=== PATIENT | male | born 1975 | race Caucasian/White ===

== ENCOUNTER → 2021-08-23 12:09 | Outpatient (CLI) | payer SELFPAY ==
--- NOTE | 2021-08-23 12:19 | CT_ITS ---
PROCEDURE: CT HEART W CALCIUM SCORE CLINICAL HISTORY: eval for cad COMPARISON: No exams were available for comparison TECHNIQUE: Axial images obtained with sagittal and coronal reformats. All CT scans at the facility use one or more dose reduction, viz: automated exposure control, ma/kV adjustment per patient size (including targeted exams where dose is matched to indication, i.e. head), or iterative reconstruction technique. FINDINGS: Coronary artery calcium score is 0. No identifiable calcific atherosclerotic plaque with very low cardiovascular disease risk IMPRESSION: No identifiable calcific atherosclerotic plaque with very low cardiovascular disease risk Dictated by: Elfego Moeller MD 08/23/2021 17:43 Elfego Moeller MD in [facility] 08/23/2021 17:43
== END ==
PROVIDERS: PCP Nurse Practitioner Family; Visit Provider Internal Medicine
DX: Z13.6 Encounter for screening for cardiovascular disorders (principal); R00.2 Palpitations; R42 Dizziness and giddiness
CPT/HCPCS: 75571

== ENCOUNTER → 2021-08-23 12:16 | Outpatient (CLI) | payer SELFPAY ==
--- NOTE | 2021-08-23 12:16 | CA_ITS ---
APPROVED REPORT EXAM: Comprehensive 2D, Doppler, and color-flow Echocardiogram Director Maternal Child: Jagruti Anton, ELE, RVS Ht: 5 ft 11 in Wt: 211lbs BSA: 2.16 BP: 128/92 mmHg Indications: Palptiations 2D Dimensions Aortic Root 2.97 cm LA Volume 49.50 mL LVOT 2.06 cm (M/F) 1.5-2.5 LA Volume Index 22.90 mL/m2 (M/F) 16-34 M-Mode Dimensions RVDd 2.82 cm (0.9-2.6) LA Diam 3.28 cm (1.9-4.0) LVDd 5.03 cm (3.5-5.7) Ao Diam 2.86 cm (2.0-3.7) LVDs 3.24 cm (3.5-5.7) IVSd 1.11 cm (0.6-1.1) PWd 1.07 cm (0.6-1.1) EF (Teich) 64.80% EPSs 0.34 cm FS 35.60% EDV (Teich) 119.90 mL TAPSE 2.78 (<1.7) ESV (Teich) 42.20 mL LV Diastology E Decel Time 277.00 (160-240 msec) E/A Ratio 2.72 MED E' 10.30 (< 7 cm/sec) MED A' 9.70 cm/s E'/MED E' Ratio 7.02 (>14) LAT E' 14.00 (<10 cm/sec) LAT A' 8.30 cm/s E/LAT E' Ratio 5.16 (>14) Pulm Vein s 55.00 cm/sec Pulm Vein d 28.00 cm/sec Ar-A Duration 163.00 msec Aortic Valve LVOT Max 96.00 (70-110 cm/s) LVOT VTI 19.28 cm AoV Peak Gregorio. 135.00 (50-130 cm/s) AO Peak GR. 7.30 mmHg AO Mean GR. 3.60 (<5 mmHg) AO VTI 25.61 (18-25 cm) MERLY (VTI) 2.51 (2.5-4.5 cm2) Mitral Valve MV A Velocity 27.00 (40-130 cm/s) E/A Ratio 2.72 MV Decel. Time 277.00 (160-240 ms) Tricuspid Valve TR P. Velocity 216.00 cm/s RAP Estimate 10.00 mmHg RVSP 28.60 mmHg Left Ventricle Left atrium normal size, left ventricle is normal size, there is no concentric left ventricular hypertrophy, visually estimated ejection fraction 55% with no regional wall motion abnormality, diastolic parameters are within normal range. Right Ventricle Right atrium and right ventricle are normal size and contractility. Aortic Valve Aortic valve is grossly normal, there is no aortic stenosis or aortic insufficiency. Mitral Valve Mitral valve grossly normal, there is trace mitral regurgitation. Tricuspid Valve Tricuspid valve grossly normal, there is trace tricuspid regurgitation, calculated right ventricular systolic pressure is within normal range. Pulmonic Valve Pulmonic valve is poorly visualized. Great Vessels Aortic root is normal size. Inferior vena cava is normal size with normal inspiratory collapse. Pericardium No significant pericardial effusion noted. Conclusion 1. Normal left ventricular size, preserved left ventricular systolic function, visually estimated ejection fraction 55% with no regional wall motion abnormality, diastolic parameters are within normal range. 2. Trace mitral and tricuspid regurgitation. Calculated right ventricular systolic pressure within normal range. 3. No significant pericardial effusion noted. 4. Inferior vena cava normal size with normal inspiratory collapse. Electronically signed by : Moncho Mayfield MD 08/23/2021 20:27:51
== END ==
PROVIDERS: PCP Nurse Practitioner Family; Visit Provider Internal Medicine
DX: R00.2 Palpitations (principal); R42 Dizziness and giddiness
CPT/HCPCS: 93306